=== PATIENT | male | born 1945 | race Caucasian/White ===

== ENCOUNTER 2017-01-07 19:34 | Emergency (ER) | payer OTHER, MEDICARE ==
--- NOTE | 2017-01-08 13:56 | ED ORDER SUMMARY ---
..... Patient: GHASSAN DE LA FEUNTE OrderSheet [facility] VisitID: [id number] [place] [address] 71y, M Registration Date/Time: 01/07/2017 ORDER SHEET Weight: 140.6 kg (stated) Allergies: LIsinopril, Cefuroxime, Clindamycin, Penicillin, Latex, Niacin, Sulfa Antibiotics GENERAL ORDERS: UA-Culture if indicated Urgent (20:55 01/07/2017 TLewis R.N. verbal order read back to ellis A.R.N.P.) (20:55 TLewis R.N.) MEDICATION ORDERS: IV FLUIDS: ORDER SHEET NOTES: [Electronically signed by René England R.N. (20:55 01/07/2017)] [Electronically signed by Yessy WillamsNLyndaPLynda (13:55 01/08/2017)] [Electronically locked/signed by René England R.N. (20:55 01/07/2017)]
--- NOTE | 2017-01-08 13:56 | ED MAR SUMMARY ---
..... Medication Administration Record [facility] [address] [place], [place] [id number] Patient: GHASSAN DE LA FUENTE Visit ID: [id number] 71y, M Weight: 140.6 kg Height/Length: 71 in BMI: 43.3 ALLERGIES: Sulfa Antibiotics, Niacin, Latex, Penicillin, Clindamycin, Cefuroxime, LIsinopril
--- NOTE | 2017-01-08 13:56 | ED DISCHARGE INSTRUCTIONS ---
Patient: GHASSAN DE LA FUENTE General Instructions [facility] VisitID: [id number] [place] [address] 71y, M Registration Date/Time: 01/07/2017 Acute urinary tract infection with cystitis associated with indwelling catheter. ADDITIONAL INFORMATION Bladder Infection,Male (Adult) A bladder infection ("cystitis" or "UTI") usually causes a constant urge to urinate, and a burning when passing urine. Urine may be cloudy, smelly or dark. There may be also be pain in the lower abdomen. Cystitis in males is not common. It may be caused by a partial blockage in the urinary system that keeps the bladder from emptying completely. This is most often related to an enlarged prostate gland. Home Care: Drink lots of fluids (at least 6-8 glasses a day). This will flush the bacteria out of your bladder. Avoid sexual intercourse until your symptoms are gone. Avoid caffeine, alcohol, and spicy foods. They could irritate the bladder. A bladder infection is treated with antibiotics. You may also be given Pyridium (generic - phenazopyridine) to reduce burning with urination. This will cause urine to become a bright orange color, which can stain clothing. Follow Up with your doctor or this facility if ALL symptoms have not cleared within five days. It is important to keep your follow up appointment to discuss with your doctor the need for further tests of the urinary tract. Get Prompt Medical Attention if any of the following occur: Fever of 100.4F (38C) or higher, or as directed by your healthcare provider No improvement by the third day of treatment Increasing back or abdominal pain Repeated vomiting; unable to keep medicine down Weakness, dizziness or fainting You have been given the following additional information: Bladder Infection, Male (Adult) (Electronically signed by Yessy Willams A.R.N.P. 01/08/2017 13:55)
--- NOTE | 2017-01-08 13:56 | ED MED RECONCILIATION SUMMARY ---
Patient: GHASSAN DE LA FUENTE Medication Reconciliation Report [facility] VisitID: [id number] [address] [place] [address] 71y, M Registration Date/Time: 01/07/2017 Weight: 140.6 kg Height/Length: 71 in. BMI: 43.3 ALLERGIES: Cefuroxime, Clindamycin, Latex, LIsinopril, Niacin, Penicillin, Sulfa Antibiotics The patient's Home Medications are listed below: Not obtained. The source(s) of the original Home Medication information: patient The following Medications were given to the patient in the Emergency Department: None. The following Medications were prescribed to the patient: None.
--- NOTE | 2017-01-08 13:56 | ED MAR SUMMARY ---
..... Medication Administration Record [facility] [address] [place], [place] [id number] Patient: GHASSAN DE LA FUENTE Visit ID: [id number] 71y, M Weight: 140.6 kg Height/Length: 71 in BMI: 43.3 ALLERGIES: Sulfa Antibiotics, Niacin, Latex, Penicillin, Clindamycin, Cefuroxime, LIsinopril
--- NOTE | 2017-01-08 13:56 | ED MED RECONCILIATION SUMMARY ---
Patient: GHASSAN DE LA FUENTE Medication Reconciliation Report [facility] VisitID: [id number] [address] [place] [address] 71y, M Registration Date/Time: 01/07/2017 Weight: 140.6 kg Height/Length: 71 in. BMI: 43.3 ALLERGIES: Cefuroxime, Clindamycin, Latex, LIsinopril, Niacin, Penicillin, Sulfa Antibiotics The patient's Home Medications are listed below: Not obtained. The source(s) of the original Home Medication information: patient The following Medications were given to the patient in the Emergency Department: None. The following Medications were prescribed to the patient: None.
--- NOTE | 2017-01-08 13:56 | ED NURSING NOTES ---
Clinical Report - Nurses [facility] [place] [address] 01/07/2017 19:36 Patient: GHASSAN DE LA FUENTE TRIAGE Triage time 19:45. Acuity: LEVEL 3. --19:54 René England R.N. 19:43 01/07/17. BP: 163/86. HR: 62. RR: 16. O2 saturation: 99%. Temp: 99.7 F. --19:54 René England R.N. Chief Complaint: EVANS PROBLEM. --20:54 René England R.N. Weight: 140.6 kg stated. Height/Length: 71 inches Per Patient. BMI: 43.3. --19:52 René England R.N. Medication/allergy information source: the patient. --19:54 René England R.N. Allergies LIsinopril. --19:51 René England R.N. Cefuroxime. --19:51 René England R.N. Clindamycin. --19:51 René England R.N. Penicillin. --19:51 René England R.N. Latex. --19:52 René England R.N. Niacin. --19:52 René England R.N. Sulfa Antibiotics. --19:52 René England R.N. History Arrived by private vehicle. Historian: patient. Accompanied by family. Primary physician (BALDOMERO Canales). This started today. ( Pt came in due to dark cloudy urine. Pt has a evans cath that was changed about a week ago. Pt has no feeling from the waist down. Pt does have wound care on the heel and small of the back. Pt is in a wheelchair.). 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 --19:54 René England R.N. SOCIAL HX: Never smoker. No alcohol use or drug use. --19:54 René England R.N. PROBLEMS: Wound Infection. Wound Check. Back Pain. Back Injury. Hypertension. --19:53 René England R.N. Interventions ID band on patient. To treatment room. --19:54 René England R.N. PHYSICAL ASSESSMENT GENERAL / NEURO / PSYCH: Alert. Oriented X 4. Appears in no acute distress. HEENT: Mucous membranes are pink. RESPIRATORY: Respirations not labored. Breath sounds within normal limits. CVS: Normal heart rate and rhythm. Capillary refill less than 2 seconds. GI / : Abdomen soft and nontender. Bowel sounds within normal limits. Normal genitalia. No genital lesions noted. SKIN: Skin is warm and dry. --19:54 René England R.N. NURSING PROGRESS NOTES Patient gowned. Two patient identifiers checked. Call light placed in reach. Side rails up x 1. Bed placed in lowest position. Brakes of bed on. --19:55 René England R.N. ( The pt and his told registration that they had to leave due to changing dressings on the pt's wound. They did not speak to any medical staff. The pt left a urine sample on the counter from his evans and told registration to run the urine. The PA was notified that the pt left and asked that the urine be sent.). --20:53 René England R.N. DISPOSITION / DISCHARGE Departure time: 2019. The patient left prior to discharge education being provided. ( Pt left after talking to the PA. Pt left urine at bedside from the evans.). --20:54 René England R.N. Locked/Released at 01/07/2017 20:55 by René England R.N.
--- NOTE | 2017-01-08 13:56 | ED DISCHARGE INSTRUCTIONS ---
Patient: GHASSAN DE LA FUENTE General Instructions [facility] VisitID: [id number] [place] [address] 71y, M Registration Date/Time: 01/07/2017 Acute urinary tract infection with cystitis associated with indwelling catheter. ADDITIONAL INFORMATION Bladder Infection,Male (Adult) A bladder infection ("cystitis" or "UTI") usually causes a constant urge to urinate, and a burning when passing urine. Urine may be cloudy, smelly or dark. There may be also be pain in the lower abdomen. Cystitis in males is not common. It may be caused by a partial blockage in the urinary system that keeps the bladder from emptying completely. This is most often related to an enlarged prostate gland. Home Care: Drink lots of fluids (at least 6-8 glasses a day). This will flush the bacteria out of your bladder. Avoid sexual intercourse until your symptoms are gone. Avoid caffeine, alcohol, and spicy foods. They could irritate the bladder. A bladder infection is treated with antibiotics. You may also be given Pyridium (generic - phenazopyridine) to reduce burning with urination. This will cause urine to become a bright orange color, which can stain clothing. Follow Up with your doctor or this facility if ALL symptoms have not cleared within five days. It is important to keep your follow up appointment to discuss with your doctor the need for further tests of the urinary tract. Get Prompt Medical Attention if any of the following occur: Fever of 100.4F (38C) or higher, or as directed by your healthcare provider No improvement by the third day of treatment Increasing back or abdominal pain Repeated vomiting; unable to keep medicine down Weakness, dizziness or fainting You have been given the following additional information: Bladder Infection, Male (Adult) (Electronically signed by Yessy Willams A.R.N.P. 01/08/2017 13:55)
--- NOTE | 2017-01-08 13:56 | ED ORDER SUMMARY ---
..... Patient: GHASSAN DE LA FUENTE OrderSheet [facility] VisitID: [id number] [place] [address] 71y, M Registration Date/Time: 01/07/2017 ORDER SHEET Weight: 140.6 kg (stated) Allergies: LIsinopril, Cefuroxime, Clindamycin, Penicillin, Latex, Niacin, Sulfa Antibiotics GENERAL ORDERS: UA-Culture if indicated Urgent (20:55 01/07/2017 TLewis R.N. verbal order read back to ellis A.R.N.P.) (20:55 TLewis R.N.) MEDICATION ORDERS: IV FLUIDS: ORDER SHEET NOTES: [Electronically signed by René England R.N. (20:55 01/07/2017)] [Electronically signed by Yessy WillamsNLyndaPLynda (13:55 01/08/2017)] [Electronically locked/signed by René England R.N. (20:55 01/07/2017)]
--- NOTE | 2017-01-08 13:56 | ED NURSING NOTES ---
Clinical Report - Nurses [facility] [place] [address] 01/07/2017 19:36 Patient: GHASSAN DE LA FUENTE TRIAGE Triage time 19:45. Acuity: LEVEL 3. --19:54 René England R.N. 19:43 01/07/17. BP: 163/86. HR: 62. RR: 16. O2 saturation: 99%. Temp: 99.7 F. --19:54 René England R.N. Chief Complaint: EVANS PROBLEM. --20:54 René England R.N. Weight: 140.6 kg stated. Height/Length: 71 inches Per Patient. BMI: 43.3. --19:52 René England R.N. Medication/allergy information source: the patient. --19:54 René England R.N. Allergies LIsinopril. --19:51 René England R.N. Cefuroxime. --19:51 René England R.N. Clindamycin. --19:51 René England R.N. Penicillin. --19:51 René England R.N. Latex. --19:52 René England R.N. Niacin. --19:52 René England R.N. Sulfa Antibiotics. --19:52 René England R.N. History Arrived by private vehicle. Historian: patient. Accompanied by family. Primary physician (BALDOMERO Canales). This started today. ( Pt came in due to dark cloudy urine. Pt has a evans cath that was changed about a week ago. Pt has no feeling from the waist down. Pt does have wound care on the heel and small of the back. Pt is in a wheelchair.). 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 --19:54 René England R.N. SOCIAL HX: Never smoker. No alcohol use or drug use. --19:54 René England R.N. PROBLEMS: Wound Infection. Wound Check. Back Pain. Back Injury. Hypertension. --19:53 René England R.N. Interventions ID band on patient. To treatment room. --19:54 René England R.N. PHYSICAL ASSESSMENT GENERAL / NEURO / PSYCH: Alert. Oriented X 4. Appears in no acute distress. HEENT: Mucous membranes are pink. RESPIRATORY: Respirations not labored. Breath sounds within normal limits. CVS: Normal heart rate and rhythm. Capillary refill less than 2 seconds. GI / : Abdomen soft and nontender. Bowel sounds within normal limits. Normal genitalia. No genital lesions noted. SKIN: Skin is warm and dry. --19:54 René England R.N. NURSING PROGRESS NOTES Patient gowned. Two patient identifiers checked. Call light placed in reach. Side rails up x 1. Bed placed in lowest position. Brakes of bed on. --19:55 René England R.N. ( The pt and his told registration that they had to leave due to changing dressings on the pt's wound. They did not speak to any medical staff. The pt left a urine sample on the counter from his evans and told registration to run the urine. The PA was notified that the pt left and asked that the urine be sent.). --20:53 René England R.N. DISPOSITION / DISCHARGE Departure time: 2019. The patient left prior to discharge education being provided. ( Pt left after talking to the PA. Pt left urine at bedside from the evans.). --20:54 René England R.N. Locked/Released at 01/07/2017 20:55 by René England R.N.
--- NOTE | 2017-01-08 13:56 | ED CLINICAL REPORT ---
Clinical Report - Physicians/Mid Levels [facility] [address] [place] [address] 01/07/2017 19:36 Patient: GHASSAN DE LA FUENTE Time Seen: 19:44; initial patient contact, initial documentation, patient care assumed. Arrived- By private vehicle. Historian- patient. HISTORY OF PRESENT ILLNESS Chief Complaint: EVANS PROBLEM. This started about 2 weeks ago and is still present. The problem is described as moderate. No discomfort with urination, urinary frequency, testicular pain, urgency of urination or flank pain. He has had Evans catheter problems (cloudy urine). Sexual history is noncontributory. (evans was changed x1 wk ago, it normally gets changed once a month, pt has no feeling from waist down, and is in wheelchair). Similar symptoms previously: Frequently, as bad. Recent medical care: Not recently seen/assessed. REVIEW OF SYSTEMS No fever, flank pain, hematuria, abdominal pain or vomiting. No diarrhea, chest pain or difficulty breathing. All systems otherwise negative, except as recorded above. PAST HISTORY See nurses notes. ( PROBLEMS: Wound Infection. Wound Check. Back Pain. Back Injury. Hypertension. --19:53 René England R.N.). SOCIAL HISTORY Never smoker. No alcohol use or drug use. No recent travel. Is a local resident. FAMILY HISTORY Negative. ADDITIONAL NOTES The nursing notes have been reviewed with agreement regarding the chief complaint, HPI, ROS, PMH and patient medications and allergies. PHYSICAL EXAM Vital Signs: 01/07/2017 19:43 BP: 163/86. HR: 62. RR: 16. O2 saturation: 99%. Temp: 99.7 F. Have been reviewed as normal and appear to be correct. Appearance: Alert. Oriented X3. No acute distress. ENT: Normal external inspection. Pharynx normal. Neck: Neck supple. CVS: Heart sounds normal. Respiratory: No respiratory distress. Breath sounds normal. Abdomen: Soft and nontender. Moderately obese. Back: Normal external inspection. : Evans catheter returning cloudy urine. Returns appear abnormal. Not bloody or haroon blood. Skin: Skin warm and dry. Normal skin color. No rash. Normal skin turgor. Extremities: Extremities exhibit normal ROM. No lower extremity edema. Neuro: Oriented X 3. No motor deficit. No sensory deficit. LABS, X-RAYS, AND EKG Laboratory Tests: UA-Culture if indicated: (LATONYA: 01/07/2017 20:50) ( MsgRcvd 01/07/2017 21:38) Final results Test Result Flag Units (Reference) URINE COLOR YELLOW URINE APPEARANCE CLEAR URINE GLUCOSE NEGATIVE (NEGATIVE) URINE BILIRUBIN NEGATIVE (NEGATIVE) URINE KETONE NEGATIVE (NEGATIVE) URINE SPECIFIC GRAVITY 1.010 (1.010-1.030) URINE PH 8.5 H (5.0-8.0) URINE PROTEIN 1+ (NEGATIVE) URINE UROBILINOGEN 4.0 EU/dL (0.2-1.0) The urobilinogen reagent area may react with interferingsubstances known to react with Dorinda's reagent such asp-aminosalicylic acid and sulfonamides. Atypical colorreactions may be obtained in the presence of highconcentrations of p-aminobenzoic acid. The absence ofurobilinogen cannot be determined with this test. URINE NITRITE POSITIVE (NEGATIVE) URINE BLOOD TRACE-INTACT (NEGATIVE) URINE LEUK ESTERASE POSITIVE (NEGATIVE) URINE RBC 0-1 rbc/hpf (0-1) URINE WBC 0-1 wbc/hpf (0-1) URINE EPITHELIAL CELLS 0-1 EPI/hpf (0-5) URINE BACTERIA FEW (1+) (NONE SEEN) URINE COMMENT CULTURE INDICATED URINE CULTURES ARE SET-UP BASED ON THE FOLLOWING CRITERIA:POSITIVE NITRITEPOSITIVE LEUKOCYTE ESTERASEGREATER THAN 10 WHITE BLOOD CELLSMODERATE (2+) OR GREATER BACTERIA . PROGRESS AND PROCEDURES Course of Care: 20:56 01/07/17. nurse reporting pt tired of waiting and his urine was never sent so he is left asked nurse to send urine anyway, and we could call pt in abx 1315. spoke to pattern grader supervisor, Seamus, aware of situation last night, and ua results, Seamus spoke to pt, and called in abx, see nurses notes. Differential Diagnosis: Other possible considerations: uti, pyelo, urosepsis. Above considerations are based on history, physical exam and laboratory data. Differential diagnosis was discussed with patient. CLINICAL IMPRESSION Acute urinary tract infection with cystitis associated with indwelling catheter. (Electronically signed by Yessy Willams A.R.N.P. 01/08/2017 13:55) Addenda for GHASSAN DE LA FUENTE VisitID: [id number] Date: 01/07/2017 01/08/2017 13:36 Spoke with patient over the phone at 1320, at [phone], informed patient that he will need to take abx for UTI, per PRODUCTION QUALITY ANALYST Yessy Willams. Called in RX to [facility], [phone]. Ordered per PRODUCTION QUALITY ANALYST Imer, Cipro 500mg, #20, 1 by mouth, two times a day for 10 days. Spoke with Pharmacist over the phone at 1330. 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 (Electronically signed by Seamus Santiago R.N. - 01/08/2017 13:36)
--- NOTE | 2017-01-08 13:56 | ED CLINICAL REPORT ---
Clinical Report - Physicians/Mid Levels [facility] [address] [place] [address] 01/07/2017 19:36 Patient: GHASSAN DE LA FUENTE Time Seen: 19:44; initial patient contact, initial documentation, patient care assumed. Arrived- By private vehicle. Historian- patient. HISTORY OF PRESENT ILLNESS Chief Complaint: EVANS PROBLEM. This started about 2 weeks ago and is still present. The problem is described as moderate. No discomfort with urination, urinary frequency, testicular pain, urgency of urination or flank pain. He has had Evans catheter problems (cloudy urine). Sexual history is noncontributory. (evans was changed x1 wk ago, it normally gets changed once a month, pt has no feeling from waist down, and is in wheelchair). Similar symptoms previously: Frequently, as bad. Recent medical care: Not recently seen/assessed. REVIEW OF SYSTEMS No fever, flank pain, hematuria, abdominal pain or vomiting. No diarrhea, chest pain or difficulty breathing. All systems otherwise negative, except as recorded above. PAST HISTORY See nurses notes. ( PROBLEMS: Wound Infection. Wound Check. Back Pain. Back Injury. Hypertension. --19:53 René England R.N.). SOCIAL HISTORY Never smoker. No alcohol use or drug use. No recent travel. Is a local resident. FAMILY HISTORY Negative. ADDITIONAL NOTES The nursing notes have been reviewed with agreement regarding the chief complaint, HPI, ROS, PMH and patient medications and allergies. PHYSICAL EXAM Vital Signs: 01/07/2017 19:43 BP: 163/86. HR: 62. RR: 16. O2 saturation: 99%. Temp: 99.7 F. Have been reviewed as normal and appear to be correct. Appearance: Alert. Oriented X3. No acute distress. ENT: Normal external inspection. Pharynx normal. Neck: Neck supple. CVS: Heart sounds normal. Respiratory: No respiratory distress. Breath sounds normal. Abdomen: Soft and nontender. Moderately obese. Back: Normal external inspection. : Evans catheter returning cloudy urine. Returns appear abnormal. Not bloody or haroon blood. Skin: Skin warm and dry. Normal skin color. No rash. Normal skin turgor. Extremities: Extremities exhibit normal ROM. No lower extremity edema. Neuro: Oriented X 3. No motor deficit. No sensory deficit. LABS, X-RAYS, AND EKG Laboratory Tests: UA-Culture if indicated: (LATONYA: 01/07/2017 20:50) ( MsgRcvd 01/07/2017 21:38) Final results Test Result Flag Units (Reference) URINE COLOR YELLOW URINE APPEARANCE CLEAR URINE GLUCOSE NEGATIVE (NEGATIVE) URINE BILIRUBIN NEGATIVE (NEGATIVE) URINE KETONE NEGATIVE (NEGATIVE) URINE SPECIFIC GRAVITY 1.010 (1.010-1.030) URINE PH 8.5 H (5.0-8.0) URINE PROTEIN 1+ (NEGATIVE) URINE UROBILINOGEN 4.0 EU/dL (0.2-1.0) The urobilinogen reagent area may react with interferingsubstances known to react with Dorinda's reagent such asp-aminosalicylic acid and sulfonamides. Atypical colorreactions may be obtained in the presence of highconcentrations of p-aminobenzoic acid. The absence ofurobilinogen cannot be determined with this test. URINE NITRITE POSITIVE (NEGATIVE) URINE BLOOD TRACE-INTACT (NEGATIVE) URINE LEUK ESTERASE POSITIVE (NEGATIVE) URINE RBC 0-1 rbc/hpf (0-1) URINE WBC 0-1 wbc/hpf (0-1) URINE EPITHELIAL CELLS 0-1 EPI/hpf (0-5) URINE BACTERIA FEW (1+) (NONE SEEN) URINE COMMENT CULTURE INDICATED URINE CULTURES ARE SET-UP BASED ON THE FOLLOWING CRITERIA:POSITIVE NITRITEPOSITIVE LEUKOCYTE ESTERASEGREATER THAN 10 WHITE BLOOD CELLSMODERATE (2+) OR GREATER BACTERIA . PROGRESS AND PROCEDURES Course of Care: 20:56 01/07/17. nurse reporting pt tired of waiting and his urine was never sent so he is left asked nurse to send urine anyway, and we could call pt in abx 1315. spoke to supervisor modern languages, Seamus, aware of situation last night, and ua results, Seamus spoke to pt, and called in abx, see nurses notes. Differential Diagnosis: Other possible considerations: uti, pyelo, urosepsis. Above considerations are based on history, physical exam and laboratory data. Differential diagnosis was discussed with patient. CLINICAL IMPRESSION Acute urinary tract infection with cystitis associated with indwelling catheter. (Electronically signed by Yessy Willams A.R.N.P. 01/08/2017 13:55) Addenda for GHASSAN DE LA FUENTE VisitID: [id number] Date: 01/07/2017 01/08/2017 13:36 Spoke with patient over the phone at 1320, at [phone], informed patient that he will need to take abx for UTI, per FULL STACK WEB DEVELOPER Yessy Willams. Called in RX to [facility], [phone]. Ordered per FULL STACK WEB DEVELOPER Imer, Cipro 500mg, #20, 1 by mouth, two times a day for 10 days. Spoke with Pharmacist over the phone at 1330. 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 (Electronically signed by Seamus Santiago R.N. - 01/08/2017 13:36)
== END 2017-01-07 20:34 | disposition left against medical advice (07) ==
LOC: ED SRH 19:34
DX: T83.511A Infection and inflammatory reaction due to indwelling urethral catheter, initial encounter (principal); N30.00 Acute cystitis without hematuria; I10 Essential (primary) hypertension; Z88.0 Allergy status to penicillin; Z88.2 Allergy status to sulfonamides; Z88.8 Allergy status to other drugs, medicaments and biological substances; Z88.1 Allergy status to other antibiotic agents
CPT/HCPCS: 90004; 90148; 90469